=== PATIENT | female | born 1950 | race Caucasian/White ===

== ENCOUNTER 2025-03-19 12:16 | Emergency (ER) | payer MEDICARE ==
[2025-03-19 13:06] LABS: APPEARANCE,URINE CLEAR (CLEAR); GLUCOSE,URINE NEGATIVE (NEGATIVE); OCCULT BLOOD,URINE MODERATE (NEGATIVE)
[2025-03-19 13:32] LABS: EPITHELIAL CELLS,URINE OCCASIONAL /HPF (NOT SEEN)
[2025-03-19] MEDS: Take Home: Cephalexin 500 MG Cap, 6 Cap Pack PO ONE (14:50)
== END 2025-03-19 14:55 | disposition home or self-care (01) ==
LOC: DL.ED 12:16
DX: N30.00 Acute cystitis without hematuria (principal); E78.00 Pure hypercholesterolemia, unspecified; Z88.8 Allergy status to other drugs, medicaments and biological substances; Z79.899 Other long term (current) drug therapy
CPT/HCPCS: 81001; 99283; A9270